=== PATIENT | female | born 1955 | race Caucasian/White ===

== ENCOUNTER 2017-04-07 06:05 | Inpatient (IN) | payer BC ==
--- NOTE | 2017-04-07 06:03 | PCM.PREANE ---
Preanesthetic Assessment - Anesthesia/Transfusion/Family Hx Anesthesia History: Prior Anesthesia Without Reaction Type of Anesthesia Reaction: Excessive Nausea/Vomiting Family History of Anesthesia Reaction: No Transfusion History: No Prior Transfusion(s) Intubation History: Unknown - Review of Systems General: No Symptoms Cardiovascular: No Symptoms (history of HTN), Dyspnea on Exertion (history of STUART), Lightheadedness (occasionallly with position changes.) Gastrointestinal: No symptoms Neurological: No Symptoms (history of rheumatoid arthritis primary pain is noted in shoulders and in the extremities.) Other: Reports: None - Physical Assessment NPO Status Date: 04/06/17 NPO Status Time: 22:00 Pulse: 97 O2 Sat by Pulse Oximetry: 96 Respiratory Rate: 16 Blood Pressure: 146/98 Temperature: 36.3 C Height: 1.63 m Weight: 105.596 kg ASA Class: 2 Mental Status: Alert & Oriented x3 Airway Class: Mallampati = 2 Dentition: Reports: Normal Dentition, Alderson(s), Caries Thyro-Mental Finger Breadths: 3 Mouth Opening Finger Breadths: 3 ROM/Head Extension: Full Lungs: Clear to auscultation Cardiovascular: Regular Rate, Regular Rhythm - Lab Values: Laboratory Last Values MRSA (PCR) Negative 03/26/17 13:14 Labs: hgb= 13.1 hct= 40.2 platelets= 318,000 na= 139 k= 3.9 cl= 104 co2= 22 cr= 1.1 bun= 15 inr= 1.0 - Imaging/EKG Impressions: EKG: sinus rhythm rate= 68 CXR= negative - Allergies Allergies/Adverse Reactions: Allergies Allergy/AdvReac Type Severity Reaction Status Date / Time No Known Allergies Allergy Verified 04/04/17 09:40 - Anesthesia Plan Pre-Op Medication Ordered: None - Acknowledgements Anesthesia Type Planned: Spinal Pt an Appropriate Candidate for the Planned Anesthesia: Yes Alternatives and Risks of Anesthesia Discussed w Pt/Guardian: Yes Pt/Guardian Understands and Agrees with Anesthesia Plan: Yes PreAnesthesia Questionnaire HEENT History: Reports: Impaired vision Other HEENT History: wears glasses Cardiovascular History: Reports: High cholesterol, Hypertension Respiratory History: Reports: Other (see below) Other Respiratory History: dypsnea on exertion Genitourinary History: Reports: None [employer] DEAN History: Reports: None Musculoskeletal History: Reports: RA Neurological History: Reports: None Psychiatric History: Reports: None Endocrine/Metabolic History: Reports: None Hematologic History: Reports: Anemia Immunologic History: Reports: None Dermatologic History: Reports: None - Past Surgical History Head Surgeries/Procedures: Reports: None GI Surgical History: Reports: Colonoscopy Musculoskeletal Surgical History: Reports: Other (see below) Other Musculoskeletal Surgeries/Procedures:: LTK - SUBSTANCE USE Smoking Status *Q: Never Smoker Tobacco Use Within Last Twelve Months: No Second Hand Smoke Exposure: No Days Per Week of Alcohol Use: 3 Number of Drinks Per Day: 1 Total Drinks Per Week: 3 Recreational Drug Use History: No - HOME MEDS Home Medications: Home Meds Folic Acid 1 tab PO DAILY 12/08/16 [History] HCTZ/Triamterene [Maxzide 25-37.5 MG] 0.5 tab PO DAILY 12/08/16 [History] Methotrexate Sodium [Methotrexate] 10 tab PO SA 12/08/16 [History] Misoprostol [Cytotec] 1 tab PO BID 12/08/16 [History] Olmesartan Medoxomil [Benicar] 10 mg PO DAILY 12/08/16 [History] [place]-3/DHA/Epa/Fish Oil [[place]-3 Fish Oil 1,000 MG Sfgl] 1,000 mg PO BID [History] Oxybutynin 1 tab PO BID 12/08/16 [History] valACYclovir HCl [Valacyclovir] 1,000 mg PO BID PRN 12/08/16 [History] Multivitamins,Therapeutic [Thera] 1 each PO DAILY 04/04/17 [History] - CURRENT (IN HOUSE) MEDS Current Meds: Current Medications Morphine Sulfate 8 mg/Epinephrine HCl 0.3 mg/Cefuroxime Sodium 750 mg/Ketorolac Tromethamine 30 mg/Sodium Chloride 27.9 ml 0 mg .XX ONETIME ONE Stop: 04/07/17 08:55 Lactated Ringer's (Ringers, Lactated) 1,000 mls @ 125 mls/hr IV ASDIRECTED [facility] Lidocaine/Sodium Bicarbonate (Buffered Lidocaine 1% In Ns 8.4%) 0.25 ml IV ONETIME PRN PRN Reason: Prior to IV Start Sodium Chloride (Saline Flush) 10 ml FLUSH ASDIRECTED PRN PRN Reason: Keep Vein Open
[~2017-04-07 06:05] MED LIST: Iodine/Sodium Iodide 2% Tincture 30 ML Bottle ONE; Lactated Ringers 1,000 ML IV SCH; Lidocaine 1%/Sod Bicarbonate in NS 8.4% 1 ML Syringe IV PRN; Sodium Chloride 0.9% 10 ML Syringe FLUSH PRN; ceFAZolin 1 GM Vial ONE
[2017-04-07] MEDS ORDERED: ceFAZolin 1 GM Vial ONE (06:30)
[2017-04-07] MEDS ORDERED: Lactated Ringers 1,000 ML ONE ×2 (06:30→07:22)
[2017-04-07] MEDS ORDERED: Propofol 200 MG/20 ML SDV ONE ×2 (06:30→08:18)
[2017-04-07] MEDS ORDERED: Ondansetron 4 MG/2 ML SDV ONE (06:30)
[2017-04-07] MEDS ORDERED: fentaNYL 100 MCG/2 ML SDV ONE (06:30)
[2017-04-07] MEDS ORDERED: Midazolam 1 MG/ML 2 ML SDV ONE ×2 (06:31→07:23)
[2017-04-07] MEDS ORDERED: Morphine PF 10 MG/10 ML SDV ONE (06:31)
[2017-04-07] MEDS ORDERED: Scopolamine 1.5 MG Transdermal Patch TRDERM ONE (06:33)
[2017-04-07] MEDS ORDERED: Morphine 8 MG, EPINEPHrine 0.3 MG, Cefuroxime 750 MG, Ketorolac 30 MG, Sodium Chloride ... ONE ×5 (06:43)
[2017-04-07] MEDS ORDERED: Bisacodyl 5 MG Tab PO PRN (06:44)
[2017-04-07] MEDS ORDERED: Magnesium Hydroxide 400 MG/5 ML Susp 30 ML Cup PO PRN (06:44)
[2017-04-07] MEDS ORDERED: Morphine 2 MG/ML Syringe IVPUSH PRN (06:44)
[2017-04-07] MEDS ORDERED: Ondansetron 4 MG/2 ML SDV IVPUSH PRN ×2 (06:44→07:31)
[2017-04-07] MEDS ORDERED: ePHEDrine 50 MG/ML SDV IVPUSH PRN (07:31)
[2017-04-07] MEDS ORDERED: Metoclopramide 10 MG/2 ML SDV IV PRN (07:31)
[2017-04-07] MEDS ORDERED: diphenhydrAMINE 50 MG/ML SDV IVPUSH PRN (07:31)
[2017-04-07] MEDS ORDERED: Phenylephrine 1 MG in Sodium Chloride 0.9% 10 ML IV SCH (07:45)
[2017-04-07] MEDS: Morphine 8 MG, EPINEPHrine 0.3 MG, Cefuroxime 750 MG, Ketorolac 30 MG, Sodium Chloride ... ONE ×10 (08:03→08:14)
[2017-04-07] MEDS: Bupivacaine 0.25% 30 ML SDV ONE ×2 (08:04→08:15)
[2017-04-07] MEDS ORDERED: valACYclovir 500 MG Tab PO PRN (08:14)
[2017-04-07] MEDS ORDERED: fentaNYL 100 MCG/2 ML SDV IVPUSH PRN (08:30)
[2017-04-07] MEDS ORDERED: HYDROmorphone 0.5 MG/0.5 ML Syringe IVPUSH PRN (08:35)
[2017-04-07] MEDS ORDERED: HCTZ PO SCH (09:00)
[2017-04-07] MEDS ORDERED: TRIAMTERENE PO SCH (09:00)
--- NOTE | 2017-04-07 09:06 | PCM.POSTAN ---
POST ANESTHESIA ASSESSMENT - MENTAL STATUS Mental Status: alert - VITAL SIGNS Pulse Rate: 88 SaO2: 93 Resp Rate: 8 Blood Pressure: 93/59 Temperature: 36.4 C - RESPIRATORY Respiratory Status: respiratory rate WNL, airway patent, O2 saturation stable, supplemental oxygen - CARDIOVASCULAR CV Status: pulse rate WNL, blood pressure stable - GASTROINTESTINAL GI Status: no symptoms - POST OP HYDRATION Hydration Status: adequate & stable
--- NOTE | 2017-04-07 10:33 | CR ---
Right knee: AP and lateral views of the right knee were obtained. Comparison: No previous study. Knee prosthesis is seen. Components are aligned. Underlying bony structures are intact. Air and fluid is seen within the joint. Soft tissue air also noted. Impression: 1. Satisfactory radiographic appearance of recently placed right knee prosthesis. Diagnostic code #2
[2017-04-07] MEDS ORDERED: Naloxone 0.4 MG/ML SDV IVPUSH PRN (11:00)
--- NOTE | 2017-04-07 12:32 | PCM.CONS ---
H&P History of Present Illness - General Date of Service: 04/07/17 Admit Problem/Dx: Admission Diagnosis/Problem Admission Diagnosis/Problem Osteoarthritis of knee Source of Information: Patient, Old records History Limitations: Reports: No limitations - History of Present Illness Initial Comments - Free Text/Narative: Kim is a 61yo female with PMH of HTN, HLD, OA, RA and OAB who is S/P Rt TKA with Dr. Rodriguez this morning. Hospitalist service is asked to assist with medical mangement postoperatively. Pain is under good control thus far- spinal. VSS. Preop hgb was 13.1. Preop EKG is documented as NSR. Onset of Symptoms: Reports: gradual Location: Reports: lower extremity, right - Related Data Allergies/Adverse Reactions: Allergies Allergy/AdvReac Type Severity Reaction Status Date / Time No Known Allergies Allergy Verified 04/07/17 07:07 Home Medications: Home Meds Folic Acid 1 tab PO DAILY 12/08/16 [History] HCTZ/Triamterene [Maxzide 25-37.5 MG] 0.5 tab PO DAILY 12/08/16 [History] Methotrexate Sodium [Methotrexate] 10 tab PO SA 12/08/16 [History] Misoprostol [Cytotec] 1 tab PO BID 12/08/16 [History] Olmesartan Medoxomil [Benicar] 10 mg PO DAILY 12/08/16 [History] [place]-3/DHA/Epa/Fish Oil [[place]-3 Fish Oil 1,000 MG Sfgl] 1,000 mg PO BID [History] Oxybutynin 1 tab PO BID 12/08/16 [History] valACYclovir HCl [Valacyclovir] 1,000 mg PO BID PRN 12/08/16 [History] Multivitamins,Therapeutic [Thera] 1 each PO DAILY 04/04/17 [History] Past Medical History HEENT History: Reports: Impaired vision Other HEENT History: wears glasses Cardiovascular History: Reports: High cholesterol, Hypertension Respiratory History: Reports: Other (see below) Other Respiratory History: dypsnea on exertion Genitourinary History: Reports: None [employer] History: Reports: None Musculoskeletal History: Reports: Osteoarthritis, RA Neurological History: Reports: None Psychiatric History: Reports: None Endocrine/Metabolic History: Reports: None Hematologic History: Reports: Anemia Immunologic History: Reports: None Dermatologic History: Reports: None - Past Surgical History Head Surgeries/Procedures: Reports: None Respiratory Surgical History: Reports: None GI Surgical History: Reports: Colonoscopy Musculoskeletal Surgical History: Reports: Other (see below) Other Musculoskeletal Surgeries/Procedures:: LTK Social & Family History - Tobacco Use Smoking Status *Q: Never Smoker Second Hand Smoke Exposure: No - Caffeine Use Caffeine Use: Reports: Coffee - Alcohol Use Days Per Week of Alcohol Use: 3 Number of Drinks Per Day: 1 Total Drinks Per Week: 3 - Recreational Drug Use Recreational Drug Use: No Drug Use in Last 12 Months: No H&P Review of Systems - Review of Systems: Review Of Systems: See Below General: Reports: no symptoms HEENT: Reports: no symptoms Pulmonary: Reports: No Symptoms. Denies: Shortness of Breath Cardiovascular: Reports: no symptoms. Denies: chest pain, palpitations Gastrointestinal: Reports: No symptoms Genitourinary: Reports: no symptoms, other (gerber cath in place) Musculoskeletal: Reports: leg pain (rt knee) Psychiatric: Reports: no symptoms Exam - Exam Exam: See Below - Vital Signs Vital Signs: Last Vital Signs Temp 96.1 F 04/07/17 10:42 Pulse 65 04/07/17 11:19 Resp 14 04/07/17 10:42 BP 111/60 04/07/17 11:19 Pulse Ox 89 L 04/07/17 11:19 Weight: 231 lb 7.766 oz - Exam Quality Assessment: supplemental oxygen, DVT prophylaxis General: alert, oriented, cooperative HEENT: Conjunctiva clear, EACs clear, EOMI, Hearing intact, Mucosa moist & pink , Nares patent, Pupils equal, Pupils reactive Neck: supple, trachea midline Lungs: Clear to auscultation, Normal respiratory effort Cardiovascular: regular rate, regular rhythm, normal S1, normal S2 Abdomen: normal bowel sounds. No: guarding, rigidity, rebound, tenderness (Female) Exam: Deferred Rectal (Female) Exam: Deferred Back Exam: normal inspection Extremities: other (SCD's and damon wrap to rt LE) Peripheral Pulses: 1+: dorsalis pedis (L), dorsalis pedis (R) Skin: warm, dry Neurological: cranial nerves intact Neuro Extensive - Mental Status: alert, oriented x3, normal mood/affect, normal cognition, memory intact Neuro Extensive - Motor, Sensory, Reflexes: CN II-XII intact Psychiatric: alert, normal affect, normal mood Consult PN Assessment/Plan POD#: 0 Procedures: Procedures DXA BONE DENSITY AXIAL (03/15/16) GAIT TRAINING THERAPY (12/27/16) MANUAL THERAPY 1/> REGIONS (12/27/16) MASSAGE THERAPY (01/23/17) MR-STAPH DNA AMP PROBE (11/13/16) NEUROMUSCULAR REEDUCATION (01/23/17) PT EVAL LOW COMPLEX 20 MIN (12/27/16) THERAPEUTIC EXERCISES (01/23/17) (1) S/P total knee arthroplasty SNOMED Code(s): 7722330378033, 359602678, 9884859495715 Code(s): Z96.659 - PRESENCE OF UNSPECIFIED ARTIFICIAL KNEE JOINT Priority: High Current Visit: Yes Qualifiers: Laterality: right Qualified Code(s): Z96.651 - Presence of right artificial knee joint (2) Osteoarthritis SNOMED Code(s): 284752514 Code(s): M19.90 - UNSPECIFIED OSTEOARTHRITIS, UNSPECIFIED SITE Priority: High Current Visit: Yes Qualifiers: Osteoarthritis location: knee Osteoarthritis type: primary Laterality: right Qualified Code(s): M17.11 - Unilateral primary osteoarthritis, right knee (3) Hypertension SNOMED Code(s): 53689173 Code(s): I10 - ESSENTIAL (PRIMARY) HYPERTENSION Priority: Medium Current Visit: No Qualifiers: Hypertension type: essential hypertension Qualified Code(s): I10 - Essential (primary) hypertension (4) Rheumatoid arthritis SNOMED Code(s): 99352902 Code(s): M06.9 - RHEUMATOID ARTHRITIS, UNSPECIFIED Priority: Medium Current Visit: No Qualifiers: Rheumatoid arthritis location: unspecified site Rheumatoid factor presence : unspecified presence Qualified Code(s): M06.9 - Rheumatoid arthritis, unspecified (5) OAB (overactive bladder) SNOMED Code(s): 843012507 Code(s): N32.81 - OVERACTIVE BLADDER Priority: Medium Current Visit: No (6) Mixed hyperlipidemia SNOMED Code(s): 013093700 Code(s): E78.2 - MIXED HYPERLIPIDEMIA Priority: Medium Current Visit: No Problem List Initiated/Reviewed/Updated: Yes Plan: I/P: S/P Rt TKA with Dr. Rodriguez-- POD #0 -Pain management and DVT prophylaxis per primary team- Orthopedics -Xarelto 10mg daily as DVT prophylax -PT/OT -IS/RT -Am labs-preop hgb 13.1 Chronic conditions: HTN- cont current medications RA- cont current medications (on MTX, defer to ortho if to hold next dose- due on Friday, immunosuppresant- may delay wound healing) HLD OAB-cont current medications Other: GI prophylax with pepcid CM/SW for assistance with DC planning- plans DC home with family Patient is a Full Code. Thank you for allowing us to participate in patient's care; do not hesitate to contact with questions/concerns. Requesting Provider: Michael Date Consult Requested: 04/07/17 Reason for Consult: Postoperative medical management Patient History Reviewed: Yes Admission H&P Reviewed: No
[2017-04-07] MEDS: Misoprostol 100 MCG Tab PO SCH ×2 (13:26→21:12)
[2017-04-07] MEDS: Oxybutynin 5 MG Tab PO SCH ×2 (13:26→21:12)
[2017-04-07] MEDS ORDERED: Lactated Ringers 1,000 ML IV ONE (14:00)
[2017-04-07] MEDS: ceFAZolin 2 GM in Premix Bag 1 BAG IV SCH ×2 (14:16→22:14)
[2017-04-07] MEDS: Losartan 25 MG Tab PO SCH (14:19)
[2017-04-07] MEDS: TRIAMTERENE PO SCH (14:58)
[2017-04-07] MEDS: HCTZ PO SCH (14:58)
[2017-04-07] MEDS ORDERED: Sennosides 8.6 MG Tab PO PRN (21:00)
[2017-04-07] MEDS: Famotidine 20 MG Tab PO SCH (21:22)
[2017-04-07] MEDS: Docusate Sodium 100 MG Cap PO SCH (21:22)
[2017-04-07] MEDS: Cyclobenzaprine 10 MG Tab PO PRN (21:22)
[2017-04-08] MEDS: Acetaminophen/oxyCODONE 325-5 MG Tab PO PRN ×4 (00:30→13:25)
[2017-04-08] MEDS: ceFAZolin 2 GM in Premix Bag 1 BAG IV SCH (06:15)
--- NOTE | 2017-04-08 07:37 | PCM.CONSN ---
- General Info Date of Service: 04/08/17 Admission Dx/Problem (Free Text): Admission Diagnosis/Problem Admission Diagnosis/Problem Osteoarthritis of knee POD #1 Rt TKA VSS. Pain under good control. No nausea. Up and ambulatory with PT, doing wel. Plans DC home today with . Functional Status: Reports: pain controlled, tolerating diet, ambulating, urinating. Denies: new symptoms - Review of Systems General: Reports: No Symptoms HEENT: Reports: no symptoms Pulmonary: Reports: no symptoms Cardiovascular: Reports: No Symptoms Gastrointestinal: Reports: No symptoms Genitourinary: Reports: no symptoms Musculoskeletal: Reports: leg pain Skin: Reports: no symptoms Neurological: Reports: No Symptoms Psychiatric: Reports: no symptoms - Patient Data Vitals - most recent: Last Vital Signs Temp 98.2 F 04/08/17 04:15 Pulse 73 04/08/17 04:15 Resp 16 04/08/17 04:15 BP 97/61 04/08/17 04:15 Pulse Ox 93 L 04/08/17 06:00 Weight - most recent: 246 lb 1 oz I&O - last 24 hours: Intake & Output 04/07/17 04/08/17 04/08/17 22:59 06:59 14:59 Intake Total 1320 600 Output Total 350 425 Balance 970 175 Med Orders - Current: Current Medications Bisacodyl (Dulcolax) 5 mg PO DAILY PRN PRN Reason: Constipation Cyclobenzaprine HCl (Flexeril) 10 mg PO TID PRN PRN Reason: Spasms Last Admin: 04/07/17 21:22 Dose: 10 mg Docusate Sodium (Colace) 100 mg PO BID [facility] Last Admin: 04/07/17 21:22 Dose: 100 mg Famotidine (Pepcid) 20 mg PO Q12H [facility] Last Admin: 04/07/17 21:22 Dose: 20 mg Losartan Potassium (Cozaar) 37.5 mg PO DAILY [facility] Last Admin: 04/07/17 14:19 Dose: Not Given Magnesium Hydroxide (Milk Of Magnesia) 30 ml PO BID PRN PRN Reason: Constipation Methotrexate (Methotrexate) 25 mg PO SA [facility] Miscellaneous Information (Remove Patch) 1 ea TRDERM Q72H [facility] Misoprostol (Cytotec) 100 mcg PO BID [facility] Last Admin: 04/07/17 21:12 Dose: Not Given Morphine Sulfate (Morphine) 2 mg IVPUSH Q2H PRN PRN Reason: Breakthrough Pain Ondansetron HCl (Zofran) 4 mg IVPUSH Q6H PRN PRN Reason: Nausea/Vomiting Oxybutynin Chloride (Oxybutynin) 5 mg PO BID [facility] Last Admin: 04/07/17 21:12 Dose: Not Given Oxycodone/Acetaminophen (Percocet 325-5 Mg) 1 - 2 tab PO Q4H PRN PRN Reason: Pain Last Admin: 04/08/17 04:08 Dose: 1 tab Hctz/Triamterene ( (Maxzide) 25/37.5 Mg) 0 each PO DAILY [facility] Last Admin: 04/07/17 14:58 Dose: Not Given Rivaroxaban (Xarelto) 10 mg PO DAILY [facility] Senna (Senna) 8.6 mg PO BID PRN PRN Reason: Constipation Sodium Chloride (Saline Flush) 10 ml FLUSH ASDIRECTED PRN PRN Reason: Keep Vein Open Valacyclovir HCl (Valtrex) 1,000 mg PO BID PRN PRN Reason: cold sores Discontinued Medications Bupivacaine HCl (Marcaine 0.25%) Confirm Administered Dose 30 ml .ROUTE .STK- MED ONE Stop: 04/07/17 06:05 Last Admin: 04/07/17 08:15 Dose: 30 ml Cefazolin Sodium (Ancef) Confirm Administered Dose 2 gm .ROUTE .STK-MED ONE Stop: 04/07/17 06:05 Cefazolin Sodium (Ancef) Confirm Administered Dose 2 gm .ROUTE .STK-MED ONE Stop: 04/07/17 06:31 Last Admin: 04/07/17 08:10 Dose: 2 gm Morphine Sulfate 8 mg/Epinephrine HCl 0.3 mg/Cefuroxime Sodium 750 mg/Ketorolac Tromethamine 30 mg/Sodium Chloride 27.9 ml 0 mg .XX ONETIME ONE Stop: 04/07/17 07:46 Last Admin: 04/07/17 08:14 Dose: 788.3 mg Morphine Sulfate 8 mg/Epinephrine HCl 0.3 mg/Cefuroxime Sodium 750 mg/Ketorolac Tromethamine 30 mg/Sodium Chloride 27.9 ml 0 mg .XX ONETIME ONE Stop: 04/07/17 06:44 Last Admin: 04/07/17 13:28 Dose: Not Given Diphenhydramine HCl (Benadryl) 25 mg IVPUSH Q6H PRN PRN Reason: pruritis Stop: 04/07/17 16:00 Ephedrine Sulfate (Ephedrine Sulfate) 5 mg IVPUSH ASDIRECTED PRN PRN Reason: Hypotension Stop: 04/07/17 16:00 Fentanyl (Sublimaze) Confirm Administered Dose 100 mcg .ROUTE .STK-MED ONE Stop: 04/07/17 06:31 Fentanyl (Sublimaze) 50 mcg IVPUSH Q5M PRN PRN Reason: Pain Stop: 04/07/17 08:46 Last Admin: 04/07/17 09:46 Dose: 50 mcg Hydromorphone HCl (Dilaudid) 0.5 mg IVPUSH Q15M PRN PRN Reason: severe pain Stop: 04/07/17 08:51 Lactated Ringer's (Ringers, Lactated) 1,000 mls @ 125 mls/hr IV ASDIRECTED [facility] Last Admin: 04/07/17 06:30 Dose: 125 mls/hr Lidocaine HCl (Xylocaine-Mpf 1%) Confirm Administered Dose 10 mls @ as directed .ROUTE .STK-MED ONE Stop: 04/07/17 06:31 Lactated Ringer's (Ringers, Lactated) Confirm Administered Dose 1,000 mls @ as directed .ROUTE .STK-MED ONE Stop: 04/07/17 06:31 Cefazolin Sodium/Dextrose 2 gm (/ Premix) 50 mls @ 100 mls/hr IV Q8H [facility] Stop: 04/08/17 06:59 Last Admin: 04/07/17 22:14 Dose: 100 mls/hr Lactated Ringer's (Ringers, Lactated) Confirm Administered Dose 1,000 mls @ as directed .ROUTE .STK-MED ONE Stop: 04/07/17 07:23 Phenylephrine HCl 1 mg/ Sodium (Chloride) 10.1 mls @ 1 mls/sec IV TITRATE [facility] Stop: 04/07/17 18:00 Lactated Ringer's (Ringers, Lactated) 1,000 mls @ 500 mls/hr IV .BOLUS ONE Stop: 04/07/17 15:59 Last Admin: 04/07/17 14:13 Dose: 500 mls/hr Iodine (Iodine 2% Mild Tincture) Confirm Administered Dose 30 ml .ROUTE .STK- MED ONE Stop: 04/07/17 06:05 Last Admin: 04/07/17 08:05 Dose: 18 ml Lidocaine/Sodium Bicarbonate (Buffered Lidocaine 1% In Ns 8.4%) 0.25 ml IV ONETIME PRN PRN Reason: Prior to IV Start Last Admin: 04/07/17 06:24 Dose: 0.25 ml Metoclopramide HCl (Reglan) 10 mg IV ONETIME PRN PRN Reason: Nausea/Vomiting Stop: 04/07/17 18:00 Midazolam HCl (Versed 1 Mg/Ml) Confirm Administered Dose 2 mg .ROUTE .STK-MED ONE Stop: 04/07/17 06:32 Midazolam HCl (Versed 1 Mg/Ml) Confirm Administered Dose 2 mg .ROUTE .STK-MED ONE Stop: 04/07/17 07:24 Morphine Sulfate (Duramorph Pf) Confirm Administered Dose 10 mg .ROUTE .STK-MED ONE Stop: 04/07/17 06:32 Naloxone HCl (Narcan) 0.1 mg IVPUSH Q5M PRN PRN Reason: Oversedation Stop: 04/07/17 11:16 Ondansetron HCl (Zofran) Confirm Administered Dose 4 mg .ROUTE .STK-MED ONE Stop: 04/07/17 06:31 Ondansetron HCl (Zofran) 4 mg IVPUSH ONETIME PRN PRN Reason: Nausea/Vomiting Stop: 04/07/17 18:00 Hctz/Triamterene ( (Maxzide) 25/37.5 Mg) 0 each PO DAILY [facility] Last Admin: 04/07/17 14:27 Dose: 0.5 each Propofol (Diprivan 20 Ml) Confirm Administered Dose 400 mg .ROUTE .STK-MED ONE Stop: 04/07/17 06:31 Propofol (Diprivan 20 Ml) Confirm Administered Dose 200 mg .ROUTE .STK-MED ONE Stop: 04/07/17 08:19 Scopolamine (Transderm-Scop) 1.5 mg TRDERM Q72H ONE Stop: 04/07/17 06:34 Last Admin: 04/07/17 06:50 Dose: 1.5 mg Tranexamic Acid (Cyklokapron) Confirm Administered Dose 1,000 mg .ROUTE .STK- MED ONE Stop: 04/07/17 06:05 Last Admin: 04/07/17 08:21 Dose: 1,000 mg - Exam Quality Assessment: DVT prophylaxis General: alert, oriented, cooperative, no acute distress HEENT: Pupils equal, Pupils reactive, EOMI, Mucous membr. moist/pink Neck: supple Lungs: Clear to auscultation, Normal respiratory effort Cardiovascular: Regular Rate, Regular Rhythm Abdomen: bowel sounds present, soft, no tenderness, no distension (Female) Exam: Deferred Extremities: other (teds/SCD's bilat; ice to knee) Peripheral Pulses: 1+: dorsalis pedis (L), dorsalis pedis (R) Skin: warm, dry Wound/Incisions: dressing dry and intact Neurological: no new focal deficit Psy/Mental Status: alert, normal affect, normal mood Consult PN Assessment/Plan POD#: 1 Procedures: Procedures DXA BONE DENSITY AXIAL (03/15/16) GAIT TRAINING THERAPY (12/27/16) MANUAL THERAPY 1/> REGIONS (12/27/16) MASSAGE THERAPY (01/23/17) MR-STAPH DNA AMP PROBE (11/13/16) NEUROMUSCULAR REEDUCATION (01/23/17) PT EVAL LOW COMPLEX 20 MIN (12/27/16) THERAPEUTIC EXERCISES (01/23/17) (1) S/P total knee arthroplasty SNOMED Code(s): 9803778479777, 743206598, 5960630385844 Code(s): Z96.659 - PRESENCE OF UNSPECIFIED ARTIFICIAL KNEE JOINT Priority: High Current Visit: Yes Qualifiers: Laterality: right Qualified Code(s): Z96.651 - Presence of right artificial knee joint (2) Osteoarthritis SNOMED Code(s): 931831424 Code(s): M19.90 - UNSPECIFIED OSTEOARTHRITIS, UNSPECIFIED SITE Priority: High Current Visit: Yes Qualifiers: Osteoarthritis location: knee Osteoarthritis type: primary Laterality: right Qualified Code(s): M17.11 - Unilateral primary osteoarthritis, right knee (3) Hypertension SNOMED Code(s): 24338673 Code(s): I10 - ESSENTIAL (PRIMARY) HYPERTENSION Priority: Medium Current Visit: No Qualifiers: Hypertension type: essential hypertension Qualified Code(s): I10 - Essential (primary) hypertension (4) Rheumatoid arthritis SNOMED Code(s): 20936431 Code(s): M06.9 - RHEUMATOID ARTHRITIS, UNSPECIFIED Priority: Medium Current Visit: No Qualifiers: Rheumatoid arthritis location: unspecified site Rheumatoid factor presence : unspecified presence Qualified Code(s): M06.9 - Rheumatoid arthritis, unspecified (5) OAB (overactive bladder) SNOMED Code(s): 602516189 Code(s): N32.81 - OVERACTIVE BLADDER Priority: Medium Current Visit: No (6) Mixed hyperlipidemia SNOMED Code(s): 320472262 Code(s): E78.2 - MIXED HYPERLIPIDEMIA Priority: Medium Current Visit: No Problem List Initiated/Reviewed/Updated: Yes Plan: I/P: S/P Rt TKA with Dr. Rodriguez-- POD #1 -Pain management and DVT prophylaxis per primary team- Orthopedics -Xarelto 10mg daily as DVT prophylax -PT/OT -IS/RT -VSS -Hgb 11.5 Chronic conditions: HTN- cont current medications RA- cont current medications (on MTX, defer to ortho if to hold next dose- due on Friday, immunosuppresant- may delay wound healing) HLD OAB-cont current medications Other: GI prophylax with pepcid CM/SW for assistance with DC planning- plans DC home with family OK to dc home today from Hospitalist standpoint; medically stable. Patient is a Full Code. Thank you for allowing us to participate in patient's care; do not hesitate to contact with questions/concerns.
[2017-04-08] MEDS: Cyclobenzaprine 10 MG Tab PO PRN (08:18)
[2017-04-08] MEDS: Famotidine 20 MG Tab PO SCH (08:42)
[2017-04-08] MEDS: Docusate Sodium 100 MG Cap PO SCH (08:42)
[2017-04-08] MEDS: Misoprostol 100 MCG Tab PO SCH (08:43)
[2017-04-08] MEDS: Oxybutynin 5 MG Tab PO SCH (08:43)
[2017-04-08] MEDS: TRIAMTERENE PO SCH (08:45)
[2017-04-08] MEDS: HCTZ PO SCH (08:45)
[2017-04-08] MEDS ORDERED: Rivaroxaban 10 MG Tab PO SCH (09:00)
--- NOTE | 2017-04-08 09:14 | PCM48HPAN ---
Post Anesthesia Note - EVALUATION WITHIN 48HRS OF ANESTHETIC Vital Signs in Normal Range: Yes Patient Participated in Evaluation: Yes Respiratory Function Stable: Yes Airway Patent: Yes Cardiovascular Function Stable: Yes Hydration Status Stable: Yes Pain Control Satisfactory: Yes Nausea and Vomiting Control Satisfactory: Yes Mental Status Recovered: Yes - COMMENTS/OBSERVATIONS Free Text/Narrative:: Patient awake sitting up in bed visiting with and nurse. Patient denies any c/o at this time.
--- NOTE | 2017-04-08 10:54 | PCM.SURGPN ---
- General Info Date of Service: 04/08/17 POD#: 1 Functional Status: Reports: pain controlled, tolerating diet, ambulating, urinating. Denies: new symptoms - Review of Systems Musculoskeletal: Reports: other (The pt progressed well with P.T. and O.T. today and is prepared for d/c to home.) - Patient Data Vitals - most recent: Last Vital Signs Temp 98.2 F 04/08/17 04:15 Pulse 73 04/08/17 04:15 Resp 16 04/08/17 04:15 BP 97/61 04/08/17 04:15 Pulse Ox 93 L 04/08/17 06:00 Weight - most recent: 246 lb 1 oz I&O - last 24 hours: Intake & Output 04/07/17 04/08/17 04/08/17 22:59 06:59 14:59 Intake Total 1320 600 210 Output Total 350 425 Balance 970 175 210 Lab Results last 24 hrs: Laboratory Results - last 24 hr 04/08/17 04/08/17 Range/Units 06:35 06:35 WBC 9.19 (3.98-10.04) K/mm3 RBC 3.63 L (3.98-5.22) M/mm3 Hgb 11.5 (11.2-15.7) gm/L Hct 35.5 (34.1-44.9) % MCV 97.8 H (79.4-94.8) fl MCH 31.7 (25.6-32.2) pg MCHC 32.4 (32.2-35.5) g/dl RDW Std Deviation 45.3 (36.4-46.3) fL Plt Count 249 (182-369) K/mm3 MPV 10.9 (9.4-12.3) fl Neut % (Auto) 79.8 H (34.0-71.1) % Lymph % (Auto) 8.9 L (19.3-51.7) % [place] % (Auto) 10.2 (4.7-12.5) % Eos % (Auto) 0.7 (0.7-5.8) Baso % (Auto) 0.2 (0.1-1.2) % Neut # (Auto) 7.33 H (1.56-6.13) K/mm3 Lymph # (Auto) 0.82 L (1.18-3.74) K/mm3 [place] # (Auto) 0.94 H (0.24-0.36) K/mm3 Eos # (Auto) 0.06 (0.04-0.36) K/mm3 Baso # (Auto) 0.02 (0.01-0.08) K/mm3 Manual Slide Review Abnormal smear Sodium 135 L (136-145) mEq/L Potassium 4.5 (3.5-5.1) mEq/L Chloride 102 (98-107) mEq/L Carbon Dioxide 27 (21-32) mEq/L Anion Gap 10.5 (5-15) BUN 21 H (7-18) mg/dL Creatinine 1.2 H (0.55-1.02) mg/dL Est Cr Clr Drug Dosing 42.51 mL/min Estimated GFR (MDRD) 46 (>60) mL/min BUN/Creatinine Ratio 17.5 (14-18) Glucose 130 H (80-115) mg/dL Calcium 8.9 (8.5-10.1) mg/dL Total Bilirubin 0.6 (0.2-1.0) mg/dL AST 13 L (15-37) U/L ALT 17 (14-59) U/L Alkaline Phosphatase 83 (46-116) U/L Total Protein 6.3 L (6.4-8.2) g/dl Albumin 3.1 L (3.4-5.0) g/dl Globulin 3.2 gm/dL Albumin/Globulin Ratio 1.0 (1-2) Med Orders - Current: Current Medications Bisacodyl (Dulcolax) 5 mg PO DAILY PRN PRN Reason: Constipation Cyclobenzaprine HCl (Flexeril) 10 mg PO TID PRN PRN Reason: Spasms Last Admin: 04/08/17 08:18 Dose: 10 mg Docusate Sodium (Colace) 100 mg PO BID [facility] Last Admin: 04/08/17 08:42 Dose: 100 mg Famotidine (Pepcid) 20 mg PO Q12H [facility] Last Admin: 04/08/17 08:42 Dose: 20 mg Losartan Potassium (Cozaar) 37.5 mg PO DAILY [facility] Last Admin: 04/07/17 14:19 Dose: Not Given Magnesium Hydroxide (Milk Of Magnesia) 30 ml PO BID PRN PRN Reason: Constipation Methotrexate (Methotrexate) 25 mg PO SA [facility] Miscellaneous Information (Remove Patch) 1 ea TRDERM Q72H [facility] Misoprostol (Cytotec) 100 mcg PO BID [facility] Last Admin: 04/08/17 08:43 Dose: Not Given Morphine Sulfate (Morphine) 2 mg IVPUSH Q2H PRN PRN Reason: Breakthrough Pain Ondansetron HCl (Zofran) 4 mg IVPUSH Q6H PRN PRN Reason: Nausea/Vomiting Oxybutynin Chloride (Oxybutynin) 5 mg PO BID [facility] Last Admin: 04/08/17 08:43 Dose: Not Given Oxycodone/Acetaminophen (Percocet 325-5 Mg) 1 - 2 tab PO Q4H PRN PRN Reason: Pain Last Admin: 04/08/17 08:40 Dose: 2 tab Hctz/Triamterene ( (Maxzide) 25/37.5 Mg) 0 each PO DAILY [facility] Last Admin: 04/08/17 08:45 Dose: 0.5 each Rivaroxaban (Xarelto) 10 mg PO DAILY [facility] Last Admin: 04/08/17 08:42 Dose: 10 mg Senna (Senna) 8.6 mg PO BID PRN PRN Reason: Constipation Sodium Chloride (Saline Flush) 10 ml FLUSH ASDIRECTED PRN PRN Reason: Keep Vein Open Valacyclovir HCl (Valtrex) 1,000 mg PO BID PRN PRN Reason: cold sores Discontinued Medications Bupivacaine HCl (Marcaine 0.25%) Confirm Administered Dose 30 ml .ROUTE .STK- MED ONE Stop: 04/07/17 06:05 Last Admin: 04/07/17 08:15 Dose: 30 ml Cefazolin Sodium (Ancef) Confirm Administered Dose 2 gm .ROUTE .STK-MED ONE Stop: 04/07/17 06:05 Cefazolin Sodium (Ancef) Confirm Administered Dose 2 gm .ROUTE .STK-MED ONE Stop: 04/07/17 06:31 Last Admin: 04/07/17 08:10 Dose: 2 gm Morphine Sulfate 8 mg/Epinephrine HCl 0.3 mg/Cefuroxime Sodium 750 mg/Ketorolac Tromethamine 30 mg/Sodium Chloride 27.9 ml 0 mg .XX ONETIME ONE Stop: 04/07/17 07:46 Last Admin: 04/07/17 08:14 Dose: 788.3 mg Morphine Sulfate 8 mg/Epinephrine HCl 0.3 mg/Cefuroxime Sodium 750 mg/Ketorolac Tromethamine 30 mg/Sodium Chloride 27.9 ml 0 mg .XX ONETIME ONE Stop: 04/07/17 06:44 Last Admin: 04/07/17 13:28 Dose: Not Given Diphenhydramine HCl (Benadryl) 25 mg IVPUSH Q6H PRN PRN Reason: pruritis Stop: 04/07/17 16:00 Ephedrine Sulfate (Ephedrine Sulfate) 5 mg IVPUSH ASDIRECTED PRN PRN Reason: Hypotension Stop: 04/07/17 16:00 Fentanyl (Sublimaze) Confirm Administered Dose 100 mcg .ROUTE .STK-MED ONE Stop: 04/07/17 06:31 Fentanyl (Sublimaze) 50 mcg IVPUSH Q5M PRN PRN Reason: Pain Stop: 04/07/17 08:46 Last Admin: 04/07/17 09:46 Dose: 50 mcg Hydromorphone HCl (Dilaudid) 0.5 mg IVPUSH Q15M PRN PRN Reason: severe pain Stop: 04/07/17 08:51 Lactated Ringer's (Ringers, Lactated) 1,000 mls @ 125 mls/hr IV ASDIRECTED [facility] Last Admin: 04/07/17 06:30 Dose: 125 mls/hr Lidocaine HCl (Xylocaine-Mpf 1%) Confirm Administered Dose 10 mls @ as directed .ROUTE .STK-MED ONE Stop: 04/07/17 06:31 Lactated Ringer's (Ringers, Lactated) Confirm Administered Dose 1,000 mls @ as directed .ROUTE .STK-MED ONE Stop: 04/07/17 06:31 Cefazolin Sodium/Dextrose 2 gm (/ Premix) 50 mls @ 100 mls/hr IV Q8H [facility] Stop: 04/08/17 06:59 Last Admin: 04/08/17 06:15 Dose: 100 mls/hr Lactated Ringer's (Ringers, Lactated) Confirm Administered Dose 1,000 mls @ as directed .ROUTE .STK-MED ONE Stop: 04/07/17 07:23 Phenylephrine HCl 1 mg/ Sodium (Chloride) 10.1 mls @ 1 mls/sec IV TITRATE [facility] Stop: 04/07/17 18:00 Lactated Ringer's (Ringers, Lactated) 1,000 mls @ 500 mls/hr IV .BOLUS ONE Stop: 04/07/17 15:59 Last Admin: 04/07/17 14:13 Dose: 500 mls/hr Iodine (Iodine 2% Mild Tincture) Confirm Administered Dose 30 ml .ROUTE .STK- MED ONE Stop: 04/07/17 06:05 Last Admin: 04/07/17 08:05 Dose: 18 ml Lidocaine/Sodium Bicarbonate (Buffered Lidocaine 1% In Ns 8.4%) 0.25 ml IV ONETIME PRN PRN Reason: Prior to IV Start Last Admin: 04/07/17 06:24 Dose: 0.25 ml Metoclopramide HCl (Reglan) 10 mg IV ONETIME PRN PRN Reason: Nausea/Vomiting Stop: 04/07/17 18:00 Midazolam HCl (Versed 1 Mg/Ml) Confirm Administered Dose 2 mg .ROUTE .STK-MED ONE Stop: 04/07/17 06:32 Midazolam HCl (Versed 1 Mg/Ml) Confirm Administered Dose 2 mg .ROUTE .STK-MED ONE Stop: 04/07/17 07:24 Morphine Sulfate (Duramorph Pf) Confirm Administered Dose 10 mg .ROUTE .STK-MED ONE Stop: 04/07/17 06:32 Naloxone HCl (Narcan) 0.1 mg IVPUSH Q5M PRN PRN Reason: Oversedation Stop: 04/07/17 11:16 Ondansetron HCl (Zofran) Confirm Administered Dose 4 mg .ROUTE .STK-MED ONE Stop: 04/07/17 06:31 Ondansetron HCl (Zofran) 4 mg IVPUSH ONETIME PRN PRN Reason: Nausea/Vomiting Stop: 04/07/17 18:00 Hctz/Triamterene ( (Maxzide) 25/37.5 Mg) 0 each PO DAILY [facility] Last Admin: 04/07/17 14:27 Dose: 0.5 each Propofol (Diprivan 20 Ml) Confirm Administered Dose 400 mg .ROUTE .STK-MED ONE Stop: 04/07/17 06:31 Propofol (Diprivan 20 Ml) Confirm Administered Dose 200 mg .ROUTE .STK-MED ONE Stop: 04/07/17 08:19 Scopolamine (Transderm-Scop) 1.5 mg TRDERM Q72H ONE Stop: 04/07/17 06:34 Last Admin: 04/07/17 06:50 Dose: 1.5 mg Tranexamic Acid (Cyklokapron) Confirm Administered Dose 1,000 mg .ROUTE .STK- MED ONE Stop: 04/07/17 06:05 Last Admin: 04/07/17 08:21 Dose: 1,000 mg - Exam Wound/Incisions: dressing dry and intact General: alert, cooperative, no acute distress Lungs: Normal respiratory effort Extremities: normal pulses, no calf tenderness, other (NVS intact for BLE. Marques's negative.) - Problem List Review Problem List Initiated/Reviewed/Updated: Yes - My Orders Last 24 Hours: Active Orders 24 hr Category Date Time Status Regular Diet [DIET] Diet 04/07/17 Lunch Active Docusate Sodium [Colace] Med 04/07/17 21:00 Active 100 mg PO BID Famotidine [Pepcid] Med 04/07/17 21:00 Active 20 mg PO Q12H Methotrexate Med 04/12/17 09:00 Active 25 mg PO SA Patient's Own Medication [Ptom] Med 04/07/17 14:30 Active 0 each PO DAILY Remove Patch Med 04/10/17 06:45 Active 1 ea TRDERM Q72H Rivaroxaban [Xarelto] Med 04/08/17 09:00 Active 10 mg PO DAILY Sennosides [Senna] Med 04/07/17 21:00 Active 8.6 mg PO BID PRN Medication Orders Bisacodyl (Dulcolax) 5 mg PO DAILY PRN PRN Reason: Constipation Cyclobenzaprine HCl (Flexeril) 10 mg PO TID PRN PRN Reason: Spasms Last Admin: 04/08/17 08:18 Dose: 10 mg Admin: 04/07/17 21:22 Dose: 10 mg Docusate Sodium (Colace) 100 mg PO BID [facility] Last Admin: 04/08/17 08:42 Dose: 100 mg Admin: 04/07/17 21:22 Dose: 100 mg Famotidine (Pepcid) 20 mg PO Q12H [facility] Last Admin: 04/08/17 08:42 Dose: 20 mg Admin: 04/07/17 21:22 Dose: 20 mg Losartan Potassium (Cozaar) 37.5 mg PO DAILY [facility] Last Admin: 04/07/17 14:19 Dose: Not Given Magnesium Hydroxide (Milk Of Magnesia) 30 ml PO BID PRN PRN Reason: Constipation Methotrexate (Methotrexate) 25 mg PO [facility] Miscellaneous Information (Remove Patch) 1 ea TRDERM Q72H [facility] Misoprostol (Cytotec) 100 mcg PO BID [facility] Last Admin: 04/08/17 08:43 Dose: Not Given Admin: 04/07/17 21:12 Dose: Not Given Admin: 04/07/17 13:26 Dose: Not Given Morphine Sulfate (Morphine) 2 mg IVPUSH Q2H PRN PRN Reason: Breakthrough Pain Ondansetron HCl (Zofran) 4 mg IVPUSH Q6H PRN PRN Reason: Nausea/Vomiting Oxybutynin Chloride (Oxybutynin) 5 mg PO BID [facility] Last Admin: 04/08/17 08:43 Dose: Not Given Admin: 04/07/17 21:12 Dose: Not Given Admin: 04/07/17 13:26 Dose: Not Given Oxycodone/Acetaminophen (Percocet 325-5 Mg) 1 - 2 tab PO Q4H PRN PRN Reason: Pain Last Admin: 04/08/17 08:40 Dose: 2 tab Admin: 04/08/17 04:08 Dose: 1 tab Admin: 04/08/17 00:30 Dose: 2 tab Hctz/Triamterene ( (Maxzide) 25/37.5 Mg) 0 each PO DAILY [facility] Last Admin: 04/08/17 08:45 Dose: 0.5 each Admin: 04/07/17 14:58 Dose: Not Given Rivaroxaban (Xarelto) 10 mg PO DAILY [facility] Last Admin: 04/08/17 08:42 Dose: 10 mg Senna (Senna) 8.6 mg PO BID PRN PRN Reason: Constipation Sodium Chloride (Saline Flush) 10 ml FLUSH ASDIRECTED PRN PRN Reason: Keep Vein Open Valacyclovir HCl (Valtrex) 1,000 mg PO BID PRN PRN Reason: cold sores - Assessment Assessment (Free Text/Narrative):: POD#1 - right TKA - Plan Plan (Free Text/Narrative):: 1. Hgb 11.5 today. 2. Xarelto, frequent mobility, TEDs for VTE prophylaxis. 3. Discharge to home today. The pt will have the assistance of her . The pt's case was discussed with Dr. Rodriguez.
--- NOTE | 2017-04-08 12:40 | PCM.DCSUM1 ---
Discharge Summary - Hospital Course Brief History: Kinza is a 61 yo female who underwent right TKA with Dr. Rodriguez on 04-07-17. The procedure was completed under spinal anesthesia with sedation. The pt tolerated the procedure well and was admitted to the [facility] under Medical-Surgical status. Medical management was provided by the Hospitalist service. The pt's Hospital course was uneventful. The pt's Hgb on POD#1 was 11.5. On POD#1, Xarelto was initiated for VTE prophylaxis. SCDs and TEDs were also ordered. A Mepilex dressing was placed at the incision site at the time of surgery and remained clean and dry. The pt participated in P.T. and O.T. and progressed well. The pt was allowed to WBAT and used a FWW for mobility. On POD#1, the pt was deemed appropriate to discharge to home with her . - Discharge Data Discharge Date: 04/08/17 Discharge Disposition: Home, Self-Care 01 Condition: Good - Patient Summary/Data Operative Procedure(s) Performed: left total knee arthroplasty Consults: Consultations 04/07/17 06:44 Consult to Physician [CONS] Routine OT Evaluation and Treatment [CONS] Routine 04/07/17 06:47 PT Evaluation and Treatment [CONS] Routine - Patient Instructions Diet: Usual Diet as Tolerated Activity: Apply Ice, As Tolerated, Elevate Extremity, Full Weight Bearing Driving: Do Not Drive Showering/Bathing: May Shower Wound/Incision Care: Keep Operative Site/Wound Site Clean and Dry, Do NOT Change Dressing Notify Provider of: Fever, Increased Pain, Swelling and Redness, Drainage, Nausea and/or Vomiting Other/Special Instructions: Please get up and moving around every hour while awake. This helps to prevent blood clots. Use your walker and have help with mobility as needed. Please take Xarelto daily to help prevent blood clots. Please wear the JEROD hose during the day and you may remove them at night. Please schedule for P.T. Complete the P.T. exercises and stretches that were instructed in the Hospital. Please use the pain medication and muscle relaxant as needed. The medication may cause drowsiness and/or constipation. You could use a stool softener like docusate sodium or Colace 100mg twice daily and/or a laxative like polyethylene glycol or Miralax daily for constipation. Contact your primary care provider for further instructions if you are constipated. Please schedule an appointment with your primary care provider for 'routine post -op care'. If your primary doctor is agreeble, please remain OFF OF METHOTREXATE for an additional 2 wks. Use the incentive spirometer often. Please place ice to the knee often. Please elevate the limb to decrease swelling. Keep the Mepilex dressing in place until follow-up. Please call [phone] with questions or concerns. - Discharge Plan Prescriptions/Med Rec: Acetaminophen/oxyCODONE [Percocet 325-5 MG] 1 - 2 tab PO Q4H PRN #60 tablet PRN Reason: Pain Cyclobenzaprine [Flexeril] 10 mg PO TID PRN #40 tablet PRN Reason: Spasms Rivaroxaban [Xarelto] 10 mg PO DAILY #13 tablet Home Medications: Home Meds Folic Acid 1 tab PO DAILY 12/08/16 [History] HCTZ/Triamterene [Maxzide 25-37.5 MG] 0.5 tab PO DAILY 12/08/16 [History] Methotrexate Sodium [Methotrexate] 10 tab PO SA 12/08/16 [History] Misoprostol [Cytotec] 1 tab PO BID 12/08/16 [History] Olmesartan Medoxomil [Benicar] 10 mg PO DAILY 12/08/16 [History] [place]-3/DHA/Epa/Fish Oil [[place]-3 Fish Oil 1,000 MG Sfgl] 1,000 mg PO BID [History] Oxybutynin 1 tab PO BID 12/08/16 [History] valACYclovir HCl [Valacyclovir] 1,000 mg PO BID PRN 12/08/16 [History] Multivitamins,Therapeutic [Thera] 1 each PO DAILY 04/04/17 [History] Acetaminophen/oxyCODONE [Percocet 325-5 MG] 1 - 2 tab PO Q4H PRN #60 tablet 08/17 [Rx] Bisacodyl [Dulcolax] 5 mg PO DAILY PRN #0 tablet 04/08/17 [Rx] Cyclobenzaprine [Flexeril] 10 mg PO TID PRN #40 tablet 04/08/17 [Rx] Docusate Sodium [Colace] 100 mg PO BID cap 04/08/17 [Rx] Famotidine [Pepcid] 20 mg PO Q12H tablet 04/08/17 [Rx] Magnesium Hydroxide [Milk of Magnesia] 30 ml PO BID PRN #0 cup 04/08/17 [Rx] Remove Patch 1 ea TRDERM Q72H each 04/08/17 [Rx] Rivaroxaban [Xarelto] 10 mg PO DAILY #13 tablet 04/08/17 [Rx] Sennosides [Senna] 8.6 mg PO BID PRN #0 tablet 04/08/17 [Rx] Patient Handouts: Rivaroxaban oral tablets, Total Knee Replacement, Care After , [id number], Total Knee Replacement, [id number], Knee Rehabilitation Guidelines Following Surgery Referrals: Abran Medina MD [Primary Care Provider] - Chantelle Lewis PA-C [Physician Certified Pediatric Nurse Practitioner] - - Patient Data Vitals - Most Recent: Last Vital Signs Temp 97.0 F 04/08/17 11:51 Pulse 74 04/08/17 11:51 Resp 16 04/08/17 11:51 BP 112/65 04/08/17 11:51 Pulse Ox 95 04/08/17 11:51 Weight - Most Recent: 246 lb 1 oz I&O - Last 24 hours: Intake & Output 04/07/17 04/08/17 04/08/17 22:59 06:59 14:59 Intake Total 1320 600 210 Output Total 350 425 Balance 970 175 210 Lab Results - Last 24 hrs: Laboratory Results - last 24 hr 04/08/17 04/08/17 Range/Units 06:35 06:35 WBC 9.19 (3.98-10.04) K/mm3 RBC 3.63 L (3.98-5.22) M/mm3 Hgb 11.5 (11.2-15.7) gm/L Hct 35.5 (34.1-44.9) % MCV 97.8 H (79.4-94.8) fl MCH 31.7 (25.6-32.2) pg MCHC 32.4 (32.2-35.5) g/dl RDW Std Deviation 45.3 (36.4-46.3) fL Plt Count 249 (182-369) K/mm3 MPV 10.9 (9.4-12.3) fl Neut % (Auto) 79.8 H (34.0-71.1) % Lymph % (Auto) 8.9 L (19.3-51.7) % [place] % (Auto) 10.2 (4.7-12.5) % Eos % (Auto) 0.7 (0.7-5.8) Baso % (Auto) 0.2 (0.1-1.2) % Neut # (Auto) 7.33 H (1.56-6.13) K/mm3 Lymph # (Auto) 0.82 L (1.18-3.74) K/mm3 [place] # (Auto) 0.94 H (0.24-0.36) K/mm3 Eos # (Auto) 0.06 (0.04-0.36) K/mm3 Baso # (Auto) 0.02 (0.01-0.08) K/mm3 Manual Slide Review Abnormal smear Sodium 135 L (136-145) mEq/L Potassium 4.5 (3.5-5.1) mEq/L Chloride 102 (98-107) mEq/L Carbon Dioxide 27 (21-32) mEq/L Anion Gap 10.5 (5-15) BUN 21 H (7-18) mg/dL Creatinine 1.2 H (0.55-1.02) mg/dL Est Cr Clr Drug Dosing 42.51 mL/min Estimated GFR (MDRD) 46 (>60) mL/min BUN/Creatinine Ratio 17.5 (14-18) Glucose 130 H (80-115) mg/dL Calcium 8.9 (8.5-10.1) mg/dL Total Bilirubin 0.6 (0.2-1.0) mg/dL AST 13 L (15-37) U/L ALT 17 (14-59) U/L Alkaline Phosphatase 83 (46-116) U/L Total Protein 6.3 L (6.4-8.2) g/dl Albumin 3.1 L (3.4-5.0) g/dl Globulin 3.2 gm/dL Albumin/Globulin Ratio 1.0 (1-2) Med Orders - Current: Current Medications Bisacodyl (Dulcolax) 5 mg PO DAILY PRN PRN Reason: Constipation Cyclobenzaprine HCl (Flexeril) 10 mg PO TID PRN PRN Reason: Spasms Last Admin: 04/08/17 08:18 Dose: 10 mg Docusate Sodium (Colace) 100 mg PO BID [facility] Last Admin: 04/08/17 08:42 Dose: 100 mg Famotidine (Pepcid) 20 mg PO Q12H [facility] Last Admin: 04/08/17 08:42 Dose: 20 mg Losartan Potassium (Cozaar) 37.5 mg PO DAILY [facility] Last Admin: 04/07/17 14:19 Dose: Not Given Magnesium Hydroxide (Milk Of Magnesia) 30 ml PO BID PRN PRN Reason: Constipation Methotrexate (Methotrexate) 25 mg PO SA [facility] Miscellaneous Information (Remove Patch) 1 ea TRDERM Q72H [facility] Misoprostol (Cytotec) 100 mcg PO BID [facility] Last Admin: 04/08/17 08:43 Dose: Not Given Morphine Sulfate (Morphine) 2 mg IVPUSH Q2H PRN PRN Reason: Breakthrough Pain Ondansetron HCl (Zofran) 4 mg IVPUSH Q6H PRN PRN Reason: Nausea/Vomiting Oxybutynin Chloride (Oxybutynin) 5 mg PO BID [facility] Last Admin: 04/08/17 08:43 Dose: Not Given Oxycodone/Acetaminophen (Percocet 325-5 Mg) 1 - 2 tab PO Q4H PRN PRN Reason: Pain Last Admin: 04/08/17 08:40 Dose: 2 tab Hctz/Triamterene ( (Maxzide) 25/37.5 Mg) 0 each PO DAILY [facility] Last Admin: 04/08/17 08:45 Dose: 0.5 each Rivaroxaban (Xarelto) 10 mg PO DAILY [facility] Last Admin: 04/08/17 08:42 Dose: 10 mg Senna (Senna) 8.6 mg PO BID PRN PRN Reason: Constipation Sodium Chloride (Saline Flush) 10 ml FLUSH ASDIRECTED PRN PRN Reason: Keep Vein Open Valacyclovir HCl (Valtrex) 1,000 mg PO BID PRN PRN Reason: cold sores Discontinued Medications Bupivacaine HCl (Marcaine 0.25%) Confirm Administered Dose 30 ml .ROUTE .STK- MED ONE Stop: 04/07/17 06:05 Last Admin: 04/07/17 08:15 Dose: 30 ml Cefazolin Sodium (Ancef) Confirm Administered Dose 2 gm .ROUTE .STK-MED ONE Stop: 04/07/17 06:05 Cefazolin Sodium (Ancef) Confirm Administered Dose 2 gm .ROUTE .STK-MED ONE Stop: 04/07/17 06:31 Last Admin: 04/07/17 08:10 Dose: 2 gm Morphine Sulfate 8 mg/Epinephrine HCl 0.3 mg/Cefuroxime Sodium 750 mg/Ketorolac Tromethamine 30 mg/Sodium Chloride 27.9 ml 0 mg .XX ONETIME ONE Stop: 04/07/17 07:46 Last Admin: 04/07/17 08:14 Dose: 788.3 mg Morphine Sulfate 8 mg/Epinephrine HCl 0.3 mg/Cefuroxime Sodium 750 mg/Ketorolac Tromethamine 30 mg/Sodium Chloride 27.9 ml 0 mg .XX ONETIME ONE Stop: 04/07/17 06:44 Last Admin: 04/07/17 13:28 Dose: Not Given Diphenhydramine HCl (Benadryl) 25 mg IVPUSH Q6H PRN PRN Reason: pruritis Stop: 04/07/17 16:00 Ephedrine Sulfate (Ephedrine Sulfate) 5 mg IVPUSH ASDIRECTED PRN PRN Reason: Hypotension Stop: 04/07/17 16:00 Fentanyl (Sublimaze) Confirm Administered Dose 100 mcg .ROUTE .STK-MED ONE Stop: 04/07/17 06:31 Fentanyl (Sublimaze) 50 mcg IVPUSH Q5M PRN PRN Reason: Pain Stop: 04/07/17 08:46 Last Admin: 04/07/17 09:46 Dose: 50 mcg Hydromorphone HCl (Dilaudid) 0.5 mg IVPUSH Q15M PRN PRN Reason: severe pain Stop: 04/07/17 08:51 Lactated Ringer's (Ringers, Lactated) 1,000 mls @ 125 mls/hr IV ASDIRECTED [facility] Last Admin: 04/07/17 06:30 Dose: 125 mls/hr Lidocaine HCl (Xylocaine-Mpf 1%) Confirm Administered Dose 10 mls @ as directed .ROUTE .STK-MED ONE Stop: 04/07/17 06:31 Lactated Ringer's (Ringers, Lactated) Confirm Administered Dose 1,000 mls @ as directed .ROUTE .STK-MED ONE Stop: 04/07/17 06:31 Cefazolin Sodium/Dextrose 2 gm (/ Premix) 50 mls @ 100 mls/hr IV Q8H [facility] Stop: 04/08/17 06:59 Last Admin: 04/08/17 06:15 Dose: 100 mls/hr Lactated Ringer's (Ringers, Lactated) Confirm Administered Dose 1,000 mls @ as directed .ROUTE .STK-MED ONE Stop: 04/07/17 07:23 Phenylephrine HCl 1 mg/ Sodium (Chloride) 10.1 mls @ 1 mls/sec IV TITRATE [facility] Stop: 04/07/17 18:00 Lactated Ringer's (Ringers, Lactated) 1,000 mls @ 500 mls/hr IV .BOLUS ONE Stop: 04/07/17 15:59 Last Admin: 04/07/17 14:13 Dose: 500 mls/hr Iodine (Iodine 2% Mild Tincture) Confirm Administered Dose 30 ml .ROUTE .STK- MED ONE Stop: 04/07/17 06:05 Last Admin: 04/07/17 08:05 Dose: 18 ml Lidocaine/Sodium Bicarbonate (Buffered Lidocaine 1% In Ns 8.4%) 0.25 ml IV ONETIME PRN PRN Reason: Prior to IV Start Last Admin: 04/07/17 06:24 Dose: 0.25 ml Metoclopramide HCl (Reglan) 10 mg IV ONETIME PRN PRN Reason: Nausea/Vomiting Stop: 04/07/17 18:00 Midazolam HCl (Versed 1 Mg/Ml) Confirm Administered Dose 2 mg .ROUTE .STK-MED ONE Stop: 04/07/17 06:32 Midazolam HCl (Versed 1 Mg/Ml) Confirm Administered Dose 2 mg .ROUTE .STK-MED ONE Stop: 04/07/17 07:24 Morphine Sulfate (Duramorph Pf) Confirm Administered Dose 10 mg .ROUTE .STK-MED ONE Stop: 04/07/17 06:32 Naloxone HCl (Narcan) 0.1 mg IVPUSH Q5M PRN PRN Reason: Oversedation Stop: 04/07/17 11:16 Ondansetron HCl (Zofran) Confirm Administered Dose 4 mg .ROUTE .STK-MED ONE Stop: 04/07/17 06:31 Ondansetron HCl (Zofran) 4 mg IVPUSH ONETIME PRN PRN Reason: Nausea/Vomiting Stop: 04/07/17 18:00 Hctz/Triamterene ( (Maxzide) 25/37.5 Mg) 0 each PO DAILY MALIHA Last Admin: 04/07/17 14:27 Dose: 0.5 each Propofol (Diprivan 20 Ml) Confirm Administered Dose 400 mg .ROUTE .STK-MED ONE Stop: 04/07/17 06:31 Propofol (Diprivan 20 Ml) Confirm Administered Dose 200 mg .ROUTE .STK-MED ONE Stop: 04/07/17 08:19 Scopolamine (Transderm-Scop) 1.5 mg TRDERM Q72H ONE Stop: 04/07/17 06:34 Last Admin: 04/07/17 06:50 Dose: 1.5 mg Tranexamic Acid (Cyklokapron) Confirm Administered Dose 1,000 mg .ROUTE .STK- MED ONE Stop: 04/07/17 06:05 Last Admin: 04/07/17 08:21 Dose: 1,000 mg *Q Meaningful Use (DIS) - VTE *Q VTE Criteria *Q: - Stroke *Q Stroke Criteria *Q: - AMI *Q AMI Criteria *Q:
[2017-04-08] MEDS: Losartan 25 MG Tab PO SCH (13:25)
[2017-04-08 13:27] VITALS: BP 123/74
--- NOTE | 2017-04-09 21:24 | PCM.OPNOTE ---
- General Post-Op/Procedure Note Date of Surgery/Procedure: 04/07/17 Operative Procedure(s): right total knee arthroplasty Pre Op Diagnosis: right knee osteoarthrosis Post-Op Diagnosis: Same Anesthesia Technique: Local, MAC, Spinal Primary Surgeon: Fredy Rodriguez Anesthesia Provider: Elda Arana [employer]dered Sugar Supervisor: Chantelle Lewis [employer] Supervisor: Sharon Watkins EBL in mLs: 200 Complications: None Condition: Good
--- NOTE | 2017-04-09 22:10 | OR ---
DATE OF OPERATION: 04/07/2017 SURGEON: Fredy Rodriguez MD OPERATION PERFORMED: Right total knee arthroplasty. PREOPERATIVE DIAGNOSIS: Right knee osteoarthrosis. POSTOPERATIVE DIAGNOSIS: Right knee osteoarthrosis. ANESTHESIA: Local MAC with spinal. ANESTHESIA PROVIDER: Elda Arana CRNA LATHE SET UP PERSON: Chantelle Lewis PA-C and Sharon Watkins LPN. ESTIMATED BLOOD LOSS: 200 mL COMPLICATIONS: None. CONDITION: Stable. IMPLANTS: 1. Marion size 5 PS femur. 2. Marion size 5 [place] tibial base plate. 3. Marion size 5 PS X3 PS 9 mm polyethylene. 4. A 32 x 10 mm patella, asymmetric. DESCRIPTION OF PROCEDURE: The patient was identified in the preop holding area. Proper site was marked and identified by the surgeon. The patient was taken back to the operating theater. After adequate anesthesia, the patient's right lower extremity had a nonsterile tourniquet applied and it was then sterilely prepped and draped in the usual sterile fashion. OR timeout was performed. The patient received 2 g IV Ancef. At this time, right lower extremity was exsanguinated. Tourniquet was insufflated to 300 mmHg. Standard medial parapatellar incision was made. Medial parapatellar arthrotomy was created. Deep fibers of the MCL were raised and anterior fat pad was resected. At this time, attention was turned to the patella. Patella measured 24, it was resected to a 14 for a 32 x 10 mm patella. Drill holes were then drilled and found to be in adequate position. The drill was then drilled in the distal femur and the intramedullary distal femoral cutting guide was then placed. 8 mm was resected off the distal femur and was found to be an adequate resection. Sizing guide was placed. It was found to be a size femur that was shown on the implant record at the beginning of this dictation. The drill holes were drilled for the epicondylar axis using Whitesides line and epicondyles as reference. At this time, the 4-in-1 cutting block was placed. An anterior posterior and anterior and posterior chamfer cuts were then completed. The correct size box cut was then placed and the box cut was completed and found to be an adequate resection. Attention was turned to the tibia. The posterior medial lateral retractors were placed. The extramedullary tibial guide was placed. It was placed in the old footprint of the ACL. It was aligned with the center of the ankle and 0 degrees of slope, 9 mm was then resected off the unaffected lateral side. There was found to be an acceptable reduction. At this time, posterior osteophytes were removed along with medial and lateral meniscus. A trial implant was placed with a correct sized tibia that was mentioned at the beginning of the dictation. A trial spacer was trialed and a 9 mm X3 PS polyethylene was then placed. The patient's knee was brought through range of motion. The patella was tracking centrally and was stable to varus and valgus stress. Alignment was found to be roughly at 0 degrees. At this time, cement was mixed on the back table. The tibia was stamped and drilled in proper rotation. All cut surfaces were irrigated with pulse lavage irrigation with Ancef and then completely dried. Once this was completed, then the cement was ready. The universal tibial base plate was cemented in place. Next, the femur cemented into place and the 9 mm X3 PS polyethylene was placed. The patient's knee was brought into full extension. Excess cement was removed. The patella was then cemented in place at this time. Tourniquet was deflated. One liter dilute Betadine solution was irrigated through the knee along with 3 L of pulse lavage irrigation with Ancef. Periarticular injection was then completed. The patient's knee was brought through a range of motion. Once the cement had time to set up and it was found to be stable to varus valgus stress, the patella was tracking centrally with full range of motion. At this time, a #2 barbed suture was used for closure of the medial parapatellar arthrotomy. Topical tranexamic acid was placed. 2-0 Vicryl was used subcutaneously, a running 3-0 Monocryl was used subcuticularly. The patient tolerated the procedure well and was sent to the PACU in stable condition. Trial spacer was trialed and a 9 mm X3 PS polyethylene was placed. MMBROCK /[id number]
[2017-04-12] MEDS ORDERED: Methotrexate 2.5 MG Tab PO SCH (09:00)
== END 2017-04-08 14:00 | disposition home or self-care (01) | DRG 302 ==
LOC: JD.MS 06:05 → JD.OB 06:40
PROVIDERS: ADMIT Orthopaedic Surgery; ATTEND Orthopaedic Surgery
PROC: 0SRC0J9 Replacement of Right Knee Joint with Synthetic Substitute, Cemented, Open Approach (ICD-10-PCS; principal; 2017-04-07)
DX: M17.11 Unilateral primary osteoarthritis, right knee (principal); I10 Essential (primary) hypertension; M06.9 Rheumatoid arthritis, unspecified; N32.81 Overactive bladder; Z79.899 Other long term (current) drug therapy; E80.0 Hereditary erythropoietic porphyria; D64.9 Anemia, unspecified; E78.2 Mixed hyperlipidemia
CPT/HCPCS: 01402; 36415; 73560-26-RT; 73560-RT; 80053; 85025; 87641; 94762; 97110-GP; 97116-GP; 97161-GP; 97165-GO; 97535-GO; A9270-GY; C1713; C1776; J0171; J0690; J0697; J1885; J2250; J2270; J2405; J2704; J3010; J3490; J7120